=== PATIENT | female | born 1970 | race Asian ===

== ENCOUNTER → 2017-05-11 | Outpatient (CLI) | payer BC ==
[2017-05-11 09:17] LABS: ADD MAN DIFF? NO
[2017-05-11 09:35] LABS: BASOPHILS % 0.8 % (0.0-2.0); EOSINOPHILS # 0.3 10^3/ul (0.0-0.5); EOSINOPHILS % 6.2 % (0.0-7.0); HEMATOCRIT 35.3 % (37.0-47.0); LYMPHOCYTES # 1.7 10^3/ul (0.8-2.9); LYMPHOCYTES % 32.2 % (15.0-51.0); MEAN CORPUSCULAR HEMOGLOBIN 31.6 pg (29.0-33.0); MEAN CORPUSCULAR VOLUME 92.9 fl (82.0-101.0); MEAN PLATELET VOLUME 10.2 fl (7.4-10.4); MONOCYTE # 0.5 10^3/ul (0.3-0.9); NEUTROPHIL # 2.6 10^3/ul (1.6-7.5); NEUTROPHILS % 51.4 % (39.0-77.0); PLATELET COUNT 249 10^3/UL (140-415); RED CELL DISTRIBUTION WIDTH 12.6 % (11.5-14.5)
[2017-05-11 09:35] LABS: WHITE BLOOD COUNT 5.1 10^3/ul (4.8-10.8)
[2017-05-11 09:50] LABS: HEMOGLOBIN A1C 5.4 % (0-5.9)
[2017-05-11 11:16] LABS: ERYTHROCYTE SEDIMENTATION RATE 13 mm/Hr (0-20)
[2017-05-11 11:16] LABS: ALANINE AMINOTRANSFERASE 38 IU/L (13-69); ALBUMIN 4.2 g/dl (3.3-4.9); ALBUMIN/GLOBULIN RATIO 1.35; ALKALINE PHOSPHATASE 115 IU/L (42-121); ANION GAP 12 (8-16); ASPARTATE AMINO TRANSFERASE 23 IU/L (15-46); BILIRUBIN,INDIRECT 0.1 mg/dl (0-1.1); BILIRUBIN,TOTAL 0.1 mg/dl (0.2-1.3); BLOOD UREA NITROGEN 11 mg/dl (7-20); CALCIUM 8.7 mg/dl (8.4-10.2); CARBON DIOXIDE 26 mmol/L (21-31); CHLORIDE 108 mmol/L (97-110); CHOL/HDL RATIO 3.3 RATIO; CHOLESTEROL 156 mg/dl (100-200); CREATININE 0.72 mg/dl (0.44-1.00); GLUCOSE 97 mg/dl (70-220); HDL CHOLESTEROL 46 mg/dl (37-92); LDL CHOLESTEROL,CALCULATED 89 mg/dl; POTASSIUM 4.2 mmol/L (3.5-5.1); SODIUM 142 mmol/L (135-144); TOTAL PROTEIN 7.3 g/dl (6.1-8.1); TRIGLYCERIDES 104 mg/dl (0-149)
[2017-05-11 12:42] LABS: T4 (THYROXINE) 8.6 ug/dl (5.5-11.0)
[2017-05-11 13:30] LABS: FOLATE 11.3 ng/ml (2.8-20.0)
[2017-05-12 13:43] LABS: ANA SCREEN NEGATIVE (NEGATIVE)
== END | disposition home or self-care (01) ==
LOC: LAB 08:41
DX: E11.9 Type 2 diabetes mellitus without complications (principal); D51.3 Other dietary vitamin B12 deficiency anemia; E78.5 Hyperlipidemia, unspecified; M32.9 Systemic lupus erythematosus, unspecified
CPT/HCPCS: 80053; 80061; 82607; 82746; 83036; 84436; 84443; 85025; 85651; 86038

== ENCOUNTER 2017-06-11 18:01 | Emergency (ER) | payer BC ==
[2017-06-11] MEDS: SOD CHLORIDE 0.9% 1,000 ML IV (19:17)
[2017-06-11] MEDS: HYDROmorphONE 0.5 MG/0.5 ML SYG IV (19:18)
[2017-06-11] MEDS: ONDANSETRON 4 MG INJ IV (19:18)
[2017-06-11 19:31] LABS: ADD MAN DIFF? NO
[2017-06-11 19:34] LABS: BASOPHIL # 0.1 10^3/ul (0.0-0.1); BASOPHILS % 0.9 % (0.0-2.0); EOSINOPHILS # 0.3 10^3/ul (0.0-0.5); EOSINOPHILS % 4.2 % (0.0-7.0); HEMATOCRIT 35.7 % (37.0-47.0); HEMOGLOBIN 12.2 g/dl (12.0-16.0); LYMPHOCYTES # 2.6 10^3/ul (0.8-2.9); LYMPHOCYTES % 39.2 % (15.0-51.0); MEAN CORPUSCULAR HEMOGLOBIN 31.4 pg (29.0-33.0); MEAN CORPUSCULAR HGB CONC 34.2 g/dl (32.0-37.0); MEAN PLATELET VOLUME 9.9 fl (7.4-10.4); MONOCYTE # 0.6 10^3/ul (0.3-0.9); MONOCYTES % 8.3 % (0.0-11.0); NEUTROPHIL # 3.2 10^3/ul (1.6-7.5); NEUTROPHILS % 47.1 % (39.0-77.0); PLATELET COUNT 275 10^3/UL (140-415); RED BLOOD COUNT 3.88 10^6/ul (4.20-5.40); RED CELL DISTRIBUTION WIDTH 12.3 % (11.5-14.5)
[2017-06-11 19:34] LABS: WHITE BLOOD COUNT 6.7 10^3/ul (4.8-10.8)
[2017-06-11 20:18] LABS: ANION GAP 16 (8-16); BLOOD UREA NITROGEN 9 mg/dl (7-20); CARBON DIOXIDE 27 mmol/L (21-31); CHLORIDE 104 mmol/L (97-110); CREATININE 0.78 mg/dl (0.44-1.00); GLUCOSE 93 mg/dl (70-220); POTASSIUM 4.1 mmol/L (3.5-5.1); SODIUM 143 mmol/L (135-144)
[2017-06-11 20:22] LABS: TROPONIN-I < 0.012 ng/ml (0.00-0.12)
== END 2017-06-11 21:48 | disposition home or self-care (01) ==
LOC: E/R 18:01
DX: G43.909 Migraine, unspecified, not intractable, without status migrainosus (principal); R20.2 Paresthesia of skin; R42 Dizziness and giddiness
CPT/HCPCS: 36415; 70450; 80048; 84484; 85025; 93005; 96374; 96375; 99285-25

== ENCOUNTER 2017-12-09 09:55 | Emergency (ER) | payer BC ==
[2017-12-09] MEDS: ONDANSETRON (ODT) 4 MG TAB ODT (11:01)
[2017-12-09] MEDS: LORAZEPAM 0.5 MG TAB PO (11:01)
[2017-12-09] MEDS: MECLIZINE 12.5 MG TAB PO (11:01)
[2017-12-09 11:04] LABS: ADD MAN DIFF? NO
[2017-12-09 11:06] LABS: BASOPHILS % 0.5 % (0.0-2.0); EOSINOPHILS # 0.3 10^3/ul (0.0-0.5); EOSINOPHILS % 5.2 % (0.0-7.0); HEMATOCRIT 38.9 % (37.0-47.0); HEMOGLOBIN 13.3 g/dl (12.0-16.0); LYMPHOCYTES # 1.8 10^3/ul (0.8-2.9); LYMPHOCYTES % 32.3 % (15.0-51.0); MEAN CORPUSCULAR HEMOGLOBIN 32.6 pg (29.0-33.0); MEAN CORPUSCULAR HGB CONC 34.2 g/dl (32.0-37.0); MEAN CORPUSCULAR VOLUME 95.3 fl (82.0-101.0); MEAN PLATELET VOLUME 9.9 fl (7.4-10.4); MONOCYTE # 0.6 10^3/ul (0.3-0.9); NEUTROPHIL # 2.9 10^3/ul (1.6-7.5); NEUTROPHILS % 51.8 % (39.0-77.0); PLATELET COUNT 271 10^3/UL (140-415); RED BLOOD COUNT 4.08 10^6/ul (4.20-5.40); RED CELL DISTRIBUTION WIDTH 11.9 % (11.5-14.5)
[2017-12-09 11:06] LABS: WHITE BLOOD COUNT 5.6 10^3/ul (4.8-10.8)
[2017-12-09 11:07] LABS: ADD UMIC YES; UR ASCORBIC ACID NEGATIVE (NEGATIVE); UR BILIRUBIN (Dip) NEGATIVE (NEGATIVE); UR BLOOD (Dip) 1+ mg/dL (NEGATIVE); UR CLARITY CLEAR (CLEAR); UR COLOR YELLOW (YELLOW); UR GLUCOSE (Dip) NEGATIVE (NEGATIVE); UR KETONES (Dip) NEGATIVE (NEGATIVE); UR LEUKOCYTE ESTERASE (Dip) TRACE Leu/ul (NEGATIVE); UR NITRITE (Dip) NEGATIVE (NEGATIVE); UR RBC 4 /HPF (0-5); UR SPECIFIC GRAVITY (Dip) 1.015 (1.003-1.030); UR SQUAMOUS EPITHELIAL CELL FEW /HPF (FEW); UR TOTAL PROTEIN (Dip) NEGATIVE (NEGATIVE); UR UROBILINOGEN (Dip) NEGATIVE (NEGATIVE); UR WBC 6 /HPF (0-5)
[2017-12-09 11:28] LABS: ANION GAP 16 (8-16); BLOOD UREA NITROGEN 7 mg/dl (7-20); CALCIUM 9.1 mg/dl (8.4-10.2); CARBON DIOXIDE 29 mmol/L (21-31); CHLORIDE 103 mmol/L (97-110); CREATININE 0.75 mg/dl (0.44-1.00); GLUCOSE 104 mg/dl (70-220); POTASSIUM 4.2 mmol/L (3.5-5.1); SODIUM 144 mmol/L (135-144)
== END 2017-12-09 12:40 | disposition home or self-care (01) ==
LOC: FTE 09:55
DX: N30.00 Acute cystitis without hematuria (principal); R40.2142 Coma scale, eyes open, spontaneous, at arrival to emergency department; R40.2242 Coma scale, best verbal response, confused conversation, at arrival to emergency department; R40.2342 Coma scale, best motor response, flexion withdrawal, at arrival to emergency department
CPT/HCPCS: 36415; 80048; 81001; 85025; 93005; 99284-25

== ENCOUNTER → 2017-12-12 | Outpatient (CLI) | payer BC ==
[2017-12-12 07:48] LABS: ADD MAN DIFF? NO
[2017-12-12 07:49] LABS: WHITE BLOOD COUNT 5.4 10^3/ul (4.8-10.8)
[2017-12-12 07:49] LABS: BASOPHIL # 0.1 10^3/ul (0.0-0.1); BASOPHILS % 0.9 % (0.0-2.0); EOSINOPHILS # 0.3 10^3/ul (0.0-0.5); HEMATOCRIT 36.5 % (37.0-47.0); HEMOGLOBIN 12.6 g/dl (12.0-16.0); LYMPHOCYTES # 2.2 10^3/ul (0.8-2.9); LYMPHOCYTES % 40.4 % (15.0-51.0); MEAN CORPUSCULAR HEMOGLOBIN 32.6 pg (29.0-33.0); MEAN CORPUSCULAR HGB CONC 34.5 g/dl (32.0-37.0); MEAN CORPUSCULAR VOLUME 94.3 fl (82.0-101.0); MEAN PLATELET VOLUME 9.5 fl (7.4-10.4); MONOCYTE # 0.6 10^3/ul (0.3-0.9); MONOCYTES % 11.1 % (0.0-11.0); NEUTROPHIL # 2.3 10^3/ul (1.6-7.5); NEUTROPHILS % 42.4 % (39.0-77.0); PLATELET COUNT 259 10^3/UL (140-415); RED BLOOD COUNT 3.87 10^6/ul (4.20-5.40); RED CELL DISTRIBUTION WIDTH 11.9 % (11.5-14.5)
[2017-12-12 09:05] LABS: ERYTHROCYTE SEDIMENTATION RATE 14 mm/Hr (0-20)
[2017-12-12 09:59] LABS: ALANINE AMINOTRANSFERASE 46 IU/L (13-69); ALBUMIN 4.1 g/dl (3.3-4.9); ALBUMIN/GLOBULIN RATIO 1.07; ALKALINE PHOSPHATASE 164 IU/L (42-121); ANION GAP 16 (8-16); ASPARTATE AMINO TRANSFERASE 33 IU/L (15-46); BILIRUBIN,INDIRECT 0.2 mg/dl (0-1.1); BILIRUBIN,TOTAL 0.2 mg/dl (0.2-1.3); BLOOD UREA NITROGEN 7 mg/dl (7-20); CALCIUM 8.8 mg/dl (8.4-10.2); CARBON DIOXIDE 25 mmol/L (21-31); CHLORIDE 105 mmol/L (97-110); CHOL/HDL RATIO 3.8 RATIO; CHOLESTEROL 156 mg/dl (100-200); CREATININE 0.78 mg/dl (0.44-1.00); GLUCOSE 104 mg/dl (70-220); HDL CHOLESTEROL 41 mg/dl (37-92); LDL CHOLESTEROL,CALCULATED 71 mg/dl; POTASSIUM 4.7 mmol/L (3.5-5.1); SODIUM 141 mmol/L (135-144); TOTAL PROTEIN 7.9 g/dl (6.1-8.1); TRIGLYCERIDES 221 mg/dl (0-149)
[2017-12-12 10:17] LABS: T4 (THYROXINE) 7.7 ug/dl (5.5-11.0)
== END | disposition home or self-care (01) ==
LOC: LAB 07:34
DX: R51 Headache (principal); E03.9 Hypothyroidism, unspecified; D64.9 Anemia, unspecified
CPT/HCPCS: 80053; 80061; 84436; 84443; 85025; 85651

== ENCOUNTER 2017-12-25 16:09 | Inpatient (IN) | payer BC ==
[2017-12-25 16:53] LABS: URINE BLOOD (Dip) POC Trace-intact (NEGATIVE); URINE GLUCOSE (Dip) POC Negative (NEGATIVE); URINE KETONES (Dip) POC Negative (NEGATIVE); URINE LEUKOCYTE EST (Dip) POC Negative (NEGATIVE); URINE NITRITE (Dip) POC Negative (NEGATIVE); URINE TOTAL PROTEIN POC Negative (NEGATIVE)
[2017-12-25 16:56] LABS: ADD MAN DIFF? NO
[2017-12-25 17:00] LABS: WHITE BLOOD COUNT 8.5 10^3/ul (4.8-10.8)
[2017-12-25 17:00] LABS: BASOPHILS % 0.5 % (0.0-2.0); EOSINOPHILS # 0.4 10^3/ul (0.0-0.5); EOSINOPHILS % 4.1 % (0.0-7.0); HEMATOCRIT 39.5 % (37.0-47.0); HEMOGLOBIN 13.5 g/dl (12.0-16.0); LYMPHOCYTES # 2.6 10^3/ul (0.8-2.9); MEAN CORPUSCULAR HGB CONC 34.2 g/dl (32.0-37.0); MEAN CORPUSCULAR VOLUME 93.6 fl (82.0-101.0); MEAN PLATELET VOLUME 10.1 fl (7.4-10.4); MONOCYTE # 0.7 10^3/ul (0.3-0.9); MONOCYTES % 8.4 % (0.0-11.0); NEUTROPHIL # 4.8 10^3/ul (1.6-7.5); NEUTROPHILS % 56.8 % (39.0-77.0); PLATELET COUNT 287 10^3/UL (140-415); RED BLOOD COUNT 4.22 10^6/ul (4.20-5.40); RED CELL DISTRIBUTION WIDTH 12.2 % (11.5-14.5)
[2017-12-25] MEDS: HYDROCODONE/APAP (5/325) TAB PO (17:08)
[2017-12-25 17:13] LABS: INR 0.92; PROTIME 12.4 Sec (11.9-14.9)
[2017-12-25 17:14] LABS: PARTIAL THROMBOPLASTIN TIME 25.6 Sec (25.0-35.0)
[2017-12-25 17:17] LABS: ANION GAP 14 (8-16); BLOOD UREA NITROGEN 7 mg/dl (7-20); CALCIUM 9.4 mg/dl (8.4-10.2); CARBON DIOXIDE 22 mmol/L (21-31); CHLORIDE 112 mmol/L (97-110); CREATININE 0.77 mg/dl (0.44-1.00); GLUCOSE 106 mg/dl (70-220); POTASSIUM 4.2 mmol/L (3.5-5.1); SODIUM 144 mmol/L (135-144)
[2017-12-25] MEDS: ACET/BUTAL/CAFF TAB PO (18:27)
[2017-12-25] MEDS: LORAZEPAM 0.5 MG TAB PO (21:30)
[2017-12-25] MEDS ORDERED: ZOLPIDEM 5 MG TAB PO (21:30)
[2017-12-25] MEDS ORDERED: morphine 4 MG/ML VIAL IV (21:30)
[2017-12-25] MEDS ORDERED: traZODone 50 MG TAB (22:15)
[2017-12-25] MEDS ORDERED: GABAPENTIN 300 MG CAP (22:15)
[2017-12-25] MEDS: DEXTROSE 5%-0.45% NACL 1,000 ML IV (22:16)
[2017-12-25] MEDS: traZODone 50 MG TAB PO (22:16)
[2017-12-25] MEDS: GABAPENTIN 300 MG CAP PO (22:16)
[2017-12-26] MEDS: ACET/BUTAL/CAFF TAB PO ×5 (00:30→23:33)
[2017-12-26] MEDS: LORAZEPAM 2 MG INJ IV (05:41)
[2017-12-26] MEDS: ONDANSETRON 4 MG INJ IV ×4 (05:45→16:58)
[2017-12-26 06:01] LABS: ADD MAN DIFF? NO
[2017-12-26 06:12] LABS: WHITE BLOOD COUNT 6.9 10^3/ul (4.8-10.8)
[2017-12-26 06:12] LABS: BASOPHILS % 0.6 % (0.0-2.0); EOSINOPHILS # 0.3 10^3/ul (0.0-0.5); EOSINOPHILS % 4.2 % (0.0-7.0); HEMATOCRIT 36.2 % (37.0-47.0); HEMOGLOBIN 12.4 g/dl (12.0-16.0); LYMPHOCYTES # 2.1 10^3/ul (0.8-2.9); LYMPHOCYTES % 30.1 % (15.0-51.0); MEAN CORPUSCULAR HEMOGLOBIN 31.8 pg (29.0-33.0); MEAN CORPUSCULAR HGB CONC 34.3 g/dl (32.0-37.0); MEAN CORPUSCULAR VOLUME 92.8 fl (82.0-101.0); MONOCYTE # 0.7 10^3/ul (0.3-0.9); MONOCYTES % 10.5 % (0.0-11.0); NEUTROPHIL # 3.7 10^3/ul (1.6-7.5); NEUTROPHILS % 54.5 % (39.0-77.0); PLATELET COUNT 260 10^3/UL (140-415); RED CELL DISTRIBUTION WIDTH 12.1 % (11.5-14.5)
[2017-12-26 06:55] LABS: ANION GAP 12 (8-16); BLOOD UREA NITROGEN 7 mg/dl (7-20); CALCIUM 8.8 mg/dl (8.4-10.2); CARBON DIOXIDE 22 mmol/L (21-31); CHLORIDE 112 mmol/L (97-110); CREATININE 0.74 mg/dl (0.44-1.00); GLUCOSE 103 mg/dl (70-220); SODIUM 142 mmol/L (135-144)
[2017-12-26 08:10] LABS: ERYTHROCYTE SEDIMENTATION RATE 17 mm/Hr (0-20)
[2017-12-26] MEDS: DEXTROSE 5%-0.45% NACL 1,000 ML IV (10:50)
[2017-12-26] MEDS ORDERED: MAGNESIUM HYDROXIDE 30ML CUP PO (14:00)
[2017-12-26] MEDS: DOCUSATE SODIUM 100 MG CAP PO ×2 (14:45→21:19)
[2017-12-26] MEDS: ACETAMINOPHEN 500 MG TAB PO (16:57)
[2017-12-26] MEDS: PREGABALIN 75 MG CAP PO (21:13)
[2017-12-26] MEDS: ZOLPIDEM 5 MG TAB PO (21:14)
[2017-12-27] MEDS: LORAZEPAM 0.5 MG TAB PO ×2 (01:02→05:57)
[2017-12-27] MEDS: DEXTROSE 5%-0.45% NACL 1,000 ML IV ×2 (01:05→12:30)
[2017-12-27] MEDS: ACET/BUTAL/CAFF TAB PO ×4 (05:45→20:05)
[2017-12-27] MEDS: DOCUSATE SODIUM 100 MG CAP PO (07:40)
[2017-12-27] MEDS: PREGABALIN 75 MG CAP PO ×2 (07:40→21:00)
[2017-12-27] MEDS: DULOXETINE 30 MG CAP DR PO (08:34)
[2017-12-27] MEDS ORDERED: OXYCODONE/ACETAMINOPHEN (5/325) TAB PO (12:30)
[2017-12-27] MEDS: ONDANSETRON 4 MG INJ IV ×2 (12:35→17:58)
[2017-12-27 13:21] LABS: ANA SCREEN NEGATIVE (NEGATIVE)
[2017-12-27] MEDS: SUMATRIPTAN 50 MG TAB PO (14:22)
[2017-12-27] MEDS: ALPRAZOLAM 1 MG TAB PO (23:26)
[2017-12-28] MEDS: ACET/BUTAL/CAFF TAB PO ×6 (00:34→22:37)
[2017-12-28] MEDS: DOCUSATE SODIUM 100 MG CAP PO ×2 (08:10→22:36)
[2017-12-28] MEDS: SUMATRIPTAN 50 MG TAB PO (08:10)
[2017-12-28] MEDS: ALPRAZOLAM 1 MG TAB PO ×2 (08:11→21:00)
[2017-12-28] MEDS: PREGABALIN 75 MG CAP PO ×2 (08:11→21:00)
[2017-12-28] MEDS: DULOXETINE 30 MG CAP DR PO (08:11)
[2017-12-28] MEDS ORDERED: MAGNESIUM HYDROXIDE 30ML CUP PO (11:00)
[2017-12-28] MEDS: MAGNESIUM HYDROXIDE 30ML CUP PO (18:16)
[2017-12-28] MEDS: NORTRIPTYLINE 10 MG CAP PO ×2 (23:00)
[2017-12-28] MEDS: traZODone 50 MG TAB PO (23:33)
[2017-12-29] MEDS: ACET/BUTAL/CAFF TAB PO ×2 (02:38→10:56)
[2017-12-29] MEDS: DOCUSATE SODIUM 100 MG CAP PO (08:58)
[2017-12-29] MEDS: ALPRAZOLAM 1 MG TAB PO (08:58)
[2017-12-29] MEDS: GABAPENTIN 300 MG CAP PO ×2 (08:58→13:58)
[2017-12-29] MEDS: ENOXAPARIN 30 MG/0.3 ML SYG SC (09:03)
[2017-12-29] MEDS: SUMATRIPTAN 50 MG TAB PO (09:38)
== END 2017-12-29 15:29 | disposition home or self-care (01) | DRG 103 ==
LOC: E/R 16:09 → 6WM 17:34
PROVIDERS: Internal Medicine
DX: G43.909 Migraine, unspecified, not intractable, without status migrainosus (principal); R44.3 Hallucinations, unspecified; F41.9 Anxiety disorder, unspecified; M79.7 Fibromyalgia; G47.00 Insomnia, unspecified; F32.9 Major depressive disorder, single episode, unspecified; T43.215A Adverse effect of selective serotonin and norepinephrine reuptake inhibitors, initial encounter; Y92.230 Patient room in hospital as the place of occurrence of the external cause
CPT/HCPCS: 36415; 70450; 80048; 81003; 81025; 82962; 85025; 85610; 85651; 85730; 86038; 97161; 99285-25

== ENCOUNTER → 2018-06-12 | Outpatient (CLI) | payer BC ==
[2018-06-12 08:13] LABS: ADD MAN DIFF? NO
[2018-06-12 08:34] LABS: WHITE BLOOD COUNT 6.1 10^3/ul (4.8-10.8)
[2018-06-12 08:34] LABS: BASOPHIL # 0.1 10^3/ul (0.0-0.1); EOSINOPHILS # 0.3 10^3/ul (0.0-0.5); EOSINOPHILS % 4.1 % (0.0-7.0); HEMATOCRIT 35.6 % (37.0-47.0); HEMOGLOBIN 12.1 g/dl (12.0-16.0); LYMPHOCYTES # 2.2 10^3/ul (0.8-2.9); LYMPHOCYTES % 36.2 % (15.0-51.0); MEAN CORPUSCULAR HEMOGLOBIN 31.5 pg (29.0-33.0); MEAN CORPUSCULAR VOLUME 92.7 fl (82.0-101.0); MEAN PLATELET VOLUME 10.2 fl (7.4-10.4); MONOCYTE # 0.6 10^3/ul (0.3-0.9); MONOCYTES % 9.8 % (0.0-11.0); NEUTROPHILS % 48.7 % (39.0-77.0); PLATELET COUNT 242 10^3/UL (140-415); RED BLOOD COUNT 3.84 10^6/ul (4.20-5.40); RED CELL DISTRIBUTION WIDTH 12.6 % (11.5-14.5)
[2018-06-12 08:41] LABS: ALANINE AMINOTRANSFERASE 21 IU/L (13-69); ALBUMIN 4.4 g/dl (3.3-4.9); ALBUMIN/GLOBULIN RATIO 1.22; ALKALINE PHOSPHATASE 112 IU/L (42-121); ANION GAP 12 (5-13); ASPARTATE AMINO TRANSFERASE 23 IU/L (15-46); BILIRUBIN,INDIRECT 0.4 mg/dl (0-1.1); BILIRUBIN,TOTAL 0.4 mg/dl (0.2-1.3); BLOOD UREA NITROGEN 12 mg/dl (7-20); CALCIUM 8.9 mg/dl (8.4-10.2); CARBON DIOXIDE 19 mmol/L (21-31); CHLORIDE 112 mmol/L (97-110); CHOL/HDL RATIO 2.8 RATIO; CHOLESTEROL 142 mg/dl (100-200); CREATININE 0.83 mg/dl (0.44-1.00); Estimated GFR > 60 mL/min (>60); GLUCOSE 104 mg/dl (70-220); HDL CHOLESTEROL 49 mg/dl (37-92); LDL CHOLESTEROL,CALCULATED 76 mg/dl; POTASSIUM 4.2 mmol/L (3.5-5.1); SODIUM 143 mmol/L (135-144); TRIGLYCERIDES 87 mg/dl (0-149)
[2018-06-12 09:22] LABS: T4 (THYROXINE) 7.8 ug/dl (5.5-11.0)
== END | disposition home or self-care (01) ==
LOC: LAB 07:49
DX: E03.9 Hypothyroidism, unspecified (principal); E55.9 Vitamin D deficiency, unspecified; E78.5 Hyperlipidemia, unspecified
CPT/HCPCS: 80053; 80061; 82306; 84436; 84443; 85025; 85651

== ENCOUNTER → 2018-10-29 | Outpatient (CLI) | payer BC ==
[2018-10-29 16:16] LABS: ADD MAN DIFF? NO
[2018-10-29 16:18] LABS: WHITE BLOOD COUNT 5.6 10^3/ul (4.8-10.8)
[2018-10-29 16:18] LABS: BASOPHILS % 0.7 % (0.0-2.0); EOSINOPHILS # 0.2 10^3/ul (0.0-0.5); EOSINOPHILS % 3.8 % (0.0-7.0); HEMATOCRIT 34.1 % (37.0-47.0); HEMOGLOBIN 11.5 g/dl (12.0-16.0); LYMPHOCYTES # 1.8 10^3/ul (0.8-2.9); LYMPHOCYTES % 32.1 % (15.0-51.0); MEAN CORPUSCULAR HEMOGLOBIN 32.1 pg (29.0-33.0); MEAN CORPUSCULAR HGB CONC 33.7 g/dl (32.0-37.0); MEAN CORPUSCULAR VOLUME 95.3 fl (82.0-101.0); MEAN PLATELET VOLUME 9.4 fl (7.4-10.4); MONOCYTE # 0.6 10^3/ul (0.3-0.9); MONOCYTES % 11.5 % (0.0-11.0); NEUTROPHIL # 2.9 10^3/ul (1.6-7.5); NEUTROPHILS % 51.7 % (39.0-77.0); PLATELET COUNT 234 10^3/UL (140-415); RED BLOOD COUNT 3.58 10^6/ul (4.20-5.40); RED CELL DISTRIBUTION WIDTH 12.6 % (11.5-14.5)
[2018-10-29 16:36] LABS: ALANINE AMINOTRANSFERASE 16 IU/L (13-69); ALBUMIN 4.1 g/dl (3.3-4.9); ALBUMIN/GLOBULIN RATIO 1.17; ALKALINE PHOSPHATASE 108 IU/L (42-121); ANION GAP 9 (5-13); ASPARTATE AMINO TRANSFERASE 23 IU/L (15-46); BILIRUBIN,INDIRECT 0.3 mg/dl (0-1.1); BILIRUBIN,TOTAL 0.3 mg/dl (0.2-1.3); BLOOD UREA NITROGEN 14 mg/dl (7-20); CALCIUM 8.9 mg/dl (8.4-10.2); CARBON DIOXIDE 24 mmol/L (21-31); CHLORIDE 111 mmol/L (97-110); CHOL/HDL RATIO 3.2 RATIO; CHOLESTEROL 152 mg/dl (100-200); CREATININE 1.06 mg/dl (0.44-1.00); Estimated GFR 55 mL/min (>60); GLUCOSE 90 mg/dl (70-220); HDL CHOLESTEROL 47 mg/dl (37-92); LDL CHOLESTEROL,CALCULATED 74 mg/dl; POTASSIUM 4.6 mmol/L (3.5-5.1); SODIUM 144 mmol/L (135-144); TOTAL PROTEIN 7.6 g/dl (6.1-8.1); TRIGLYCERIDES 156 mg/dl (0-149)
[2018-10-29 16:52] LABS: T4 (THYROXINE) 6.8 ug/dl (5.5-11.0)
[2018-10-29 17:35] LABS: ERYTHROCYTE SEDIMENTATION RATE 14 mm/Hr (0-30)
== END | disposition home or self-care (01) ==
LOC: LAB 16:01
DX: E78.5 Hyperlipidemia, unspecified (principal)
CPT/HCPCS: 80053; 80061; 84436; 84443; 85025; 85651